=== PATIENT | female | born 1950 | race Caucasian/White ===

== ENCOUNTER 2024-10-01 15:15 | Emergency (ER) | payer MEDICARE ==
[~2024-10-01] VITALS: Ht 167.6 cm; Wt 81.6 kg
[2024-10-01] MEDS ORDERED: TDAP [DIPH/PERTUSSIS/TET] 0.5 ML VIAL IM ONE (17:03)
[2024-10-01] MEDS ORDERED: ACETAMINOPHEN 325 MG TABLET ONE ×2 (17:03→22:20)
[2024-10-01] MEDS: TDAP [DIPH/PERTUSSIS/TET] 0.5 ML VIAL IM ONE (17:10)
[2024-10-01] MEDS: ACETAMINOPHEN 325 MG TABLET PO ONE ×2 (17:10→22:21)
[2024-10-01] MEDS ORDERED: LIDOCAINE MPF 1%-EPI 1:200,000 30 ML VIAL IJ ONE (18:08)
[2024-10-01 22:22] VITALS: BP 136/74; TEMP 98.3; O2SAT 98
== END 2024-10-01 22:23 | disposition home or self-care (01) ==
LOC: ER 15:20
DX: S01.81XA Laceration without foreign body of other part of head, initial encounter (principal); I11.0 Hypertensive heart disease with heart failure; I25.10 Atherosclerotic heart disease of native coronary artery without angina pectoris; I50.9 Heart failure, unspecified; M50.30 Other cervical disc degeneration, unspecified cervical region; Z79.01 Long term (current) use of anticoagulants; Z88.0 Allergy status to penicillin; Z95.1 Presence of aortocoronary bypass graft; Z96.652 Presence of left artificial knee joint; W01.0XXA Fall on same level from slipping, tripping and stumbling without subsequent striking against object, initial encounter; Y93.01 Activity, walking, marching and hiking; Y92.480 Sidewalk as the place of occurrence of the external cause; Y99.8 Other external cause status
CPT/HCPCS: 12001; 70450; 72125; 72170; 73564; 90471; 90715; 99285; A6403; J3490